=== PATIENT | female | born 1930 | race Caucasian/White ===

== ENCOUNTER 2018-06-19 08:10 | Inpatient (IN) | payer MEDICARE, BC ==
[2018-06-19] MEDS ORDERED: Sodium Chloride 0.9% 10 ML Syringe FLUSH PRN (15:25)
[2018-06-19] MEDS ORDERED: Ondansetron 4 MG Tab.DIS PO PRN (15:25)
[2018-06-19] MEDS ORDERED: Docusate Sodium 100 MG Cap PO PRN (15:25)
[2018-06-19] MEDS ORDERED: fentaNYL 100 MCG/2 ML SDV IVPUSH SCH (15:30)
[2018-06-19] MEDS: Enoxaparin 30 MG/0.3 ML Syringe SUBCUT SCH (16:03)
[2018-06-19] MEDS: Estradiol 1 MG Tab PO SCH (19:40)
[2018-06-19] MEDS: AMITRIPTYLINE 50 MG PO SCH (19:40)
[2018-06-19] MEDS: fentaNYL 100 MCG/2 ML SDV IVPUSH SCH (19:42)
[2018-06-19] MEDS ORDERED: Zolpidem 5 MG Tab PO SCH (20:00)
[2018-06-19] MEDS ORDERED: Amitriptyline 25 MG Tab PO SCH (20:00)
[2018-06-19] MEDS: ZOLPIDEM 6.25 MG PO PRN (20:43)
[2018-06-19] MEDS: Acetaminophen/HYDROcodone 325-5 MG Tab PO PRN (23:17)
[2018-06-20] MEDS: fentaNYL 100 MCG/2 ML SDV IVPUSH SCH ×2 (08:15→19:55)
[2018-06-20] MEDS: Acetaminophen/HYDROcodone 325-5 MG Tab PO PRN ×2 (12:12→21:14)
--- NOTE | 2018-06-20 13:43 | PCM.PN ---
- General Info Date of Service: 06/20/18 Admission Dx/Problem (Free Text): Acute Low Back Pain Functional Status: Reports: Pain Controlled, Tolerating Diet. Denies: Ambulating - Review of Systems General: Reports: Weakness, Fatigue HEENT: Reports: No Symptoms Pulmonary: Reports: No Symptoms Cardiovascular: Reports: No Symptoms Gastrointestinal: Reports: No Symptoms Genitourinary: Reports: No Symptoms Musculoskeletal: Reports: Back Pain, Joint Pain Skin: Reports: No Symptoms Neurological: Reports: Difficulty Walking, Weakness - Patient Data Vitals - Most Recent: Last Vital Signs Temp 98.2 F 06/20/18 12:00 Pulse 78 06/20/18 12:00 Resp 18 06/20/18 12:00 BP 144/62 H 06/20/18 12:00 Pulse Ox 96 06/20/18 12:00 Weight - Most Recent: 101 lb 14.4 oz I&O - Last 24 Hours: Intake & Output 06/19/18 06/20/18 06/20/18 22:59 06:59 14:59 Intake Total 400 Balance 400 Med Orders - Current: Current Medications Hydrocodone Bitart/Acetaminophen ([place] 325-5 Mg) 1 tab PO Q6H PRN PRN Reason: Pain Last Admin: 06/20/18 12:12 Dose: 1 tab Docusate Sodium (Colace) 100 mg PO BID PRN PRN Reason: Constipation Enoxaparin Sodium (Lovenox) 30 mg SUBCUT 1600 [facility] Last Admin: 06/19/18 16:03 Dose: 30 mg Estradiol (Estradiol) 1 mg PO BEDTIME [facility] Last Admin: 06/19/18 19:40 Dose: 1 mg Fentanyl (Sublimaze) 50 mcg IVPUSH Q6H PRN PRN Reason: Pain Fentanyl (Sublimaze) 25 mcg IVPUSH BID@0800,2000 [facility] Last Admin: 06/20/18 08:15 Dose: 25 mcg Ptom Amitriptyline 50 Mg Tab 50 mg PO BEDTIME [facility] Last Admin: 06/19/18 19:40 Dose: 50 mg Zolpidem Er [Ambien Cr] 6.25mg Own Med 6.5 each PO BEDTIME PRN PRN Reason: SLEEP Last Admin: 06/19/18 20:43 Dose: 6.5 each Ondansetron HCl (Zofran Odt) 4 mg PO Q4H PRN PRN Reason: nausea, able to take PO Sodium Chloride (Saline Flush) 10 ml FLUSH ASDIRECTED PRN PRN Reason: Keep Vein Open Discontinued Medications Amitriptyline HCl (Elavil) 50 mg PO BEDTIME [facility] Fentanyl (Sublimaze) 25 mcg IVPUSH Q12H [facility] Last Admin: 06/19/18 16:01 Dose: 25 mcg Zolpidem Tartrate (Ambien) 5 mg PO BEDTIME [facility] - Exam General: Alert, Oriented HEENT: Mucous Membr. Moist/[place] Neck: Supple Lungs: Clear to Auscultation, Normal Respiratory Effort Cardiovascular: Regular Rate, Regular Rhythm GI/Abdominal Exam: Normal Bowel Sounds, Soft, Non-Tender Back Exam: Decreased Range of Motion, Muscle Spasm, Paraspinal Tenderness Extremities: Leg Pain, Limited Range of Motion Skin: Warm, Dry Neurological: No New Focal Deficit - Problem List & Annotations (1) Low back pain SNOMED Code(s): 231290614 Code(s): M54.5 - LOW BACK PAIN Status: Acute Priority: High Current Visit: Yes Qualifiers: Chronicity: acute Back pain laterality: right Sciatica presence: with sciatica - Problem List Review Problem List Initiated/Reviewed/Updated: Yes - Assessment Assessment:: Acute Low Back Pain Right Hip Pain - Plan Plan:: Patient denies much improvement today. Does admit that the pain meds help. Physical Therapy was in yesterday, patient not able to do much due to pain. States they applied heat to the area. Had a trigger point injection to the right upper outer hip region from Gm at clinic yesterday, did not feel helped. She continues to have pain in the right hip and low back and has limited ability to walk as a result. She states finds it difficult to find a position of comfort. Is tender to the right outer hip with palpation. Range of motion limited due to pain. Will continue with IV Fentanyl, physical therapy and see how she progresses. Certainly not able to return home at this point as unable to walk or care for self. Patient expresses refusal to have Dr. Gomez in her room, does not want him involved with her care. He will not be following patient or involved with this hospital stay if possible.
[2018-06-20] MEDS: fentaNYL 100 MCG/2 ML SDV IVPUSH PRN (16:39)
[2018-06-20] MEDS: Enoxaparin 30 MG/0.3 ML Syringe SUBCUT SCH (16:39)
[2018-06-20] MEDS: Estradiol 1 MG Tab PO SCH (20:00)
[2018-06-20] MEDS: AMITRIPTYLINE 50 MG PO SCH (20:00)
[2018-06-20] MEDS: ZOLPIDEM 6.25 MG PO PRN (21:09)
[2018-06-21] MEDS: fentaNYL 100 MCG/2 ML SDV IVPUSH SCH ×2 (07:54→19:56)
--- NOTE | 2018-06-21 10:15 | PCM.PN ---
- General Info Date of Service: 06/21/18 Admission Dx/Problem (Free Text): Acute Low Back Pain Functional Status: Reports: Tolerating Diet. Denies: Pain Controlled, Ambulating - Review of Systems General: Reports: Weakness HEENT: Reports: No Symptoms Pulmonary: Reports: No Symptoms Cardiovascular: Reports: No Symptoms Gastrointestinal: Reports: No Symptoms Genitourinary: Reports: No Symptoms Musculoskeletal: Reports: Back Pain, Leg Pain Skin: Reports: No Symptoms Neurological: Reports: Weakness - Patient Data Vitals - Most Recent: Last Vital Signs Temp 98.9 F 06/21/18 07:41 Pulse 89 06/21/18 07:41 Resp 20 06/21/18 07:41 BP 147/84 H 06/21/18 07:41 Pulse Ox 99 06/21/18 07:41 Weight - Most Recent: 101 lb 14.4 oz Med Orders - Current: Current Medications Hydrocodone Bitart/Acetaminophen ([place] 325-5 Mg) 1 tab PO Q6H PRN PRN Reason: Pain Last Admin: 06/20/18 21:14 Dose: 1 tab Docusate Sodium (Colace) 100 mg PO BID PRN PRN Reason: Constipation Enoxaparin Sodium (Lovenox) 30 mg SUBCUT 1600 [facility] Last Admin: 06/20/18 16:39 Dose: 30 mg Estradiol (Estradiol) 1 mg PO BEDTIME [facility] Last Admin: 06/20/18 20:00 Dose: 1 mg Fentanyl (Sublimaze) 50 mcg IVPUSH Q6H PRN PRN Reason: Pain Last Admin: 06/20/18 16:39 Dose: 50 mcg Fentanyl (Sublimaze) 25 mcg IVPUSH BID@0800,2000 [facility] Last Admin: 06/21/18 07:54 Dose: 25 mcg Ptom Amitriptyline 50 Mg Tab 50 mg PO BEDTIME [facility] Last Admin: 06/20/18 20:00 Dose: 50 mg Zolpidem Er [Ambien Cr] 6.25mg Own Med 6.5 each PO BEDTIME PRN PRN Reason: SLEEP Last Admin: 06/20/18 21:09 Dose: 6.5 each Ondansetron HCl (Zofran Odt) 4 mg PO Q4H PRN PRN Reason: nausea, able to take PO Sodium Chloride (Saline Flush) 10 ml FLUSH ASDIRECTED PRN PRN Reason: Keep Vein Open Discontinued Medications Amitriptyline HCl (Elavil) 50 mg PO BEDTIME [facility] Fentanyl (Sublimaze) 25 mcg IVPUSH Q12H [facility] Last Admin: 06/19/18 16:01 Dose: 25 mcg Zolpidem Tartrate (Ambien) 5 mg PO BEDTIME [facility] - Exam General: Alert, Oriented HEENT: Mucous Membr. Moist/[place] Neck: Supple Lungs: Clear to Auscultation, Normal Respiratory Effort Cardiovascular: Regular Rate, Regular Rhythm GI/Abdominal Exam: Normal Bowel Sounds, Soft, Non-Tender Back Exam: Decreased Range of Motion, Paraspinal Tenderness (continues to have pain in the right SI joint/right outer buttock region) Extremities: Normal Inspection, No Pedal Edema Skin: Warm, Dry Neurological: No New Focal Deficit - Problem List & Annotations (1) Low back pain SNOMED Code(s): 038486995 Code(s): M54.5 - LOW BACK PAIN Status: Acute Priority: High Current Visit: Yes Qualifiers: Chronicity: acute Back pain laterality: right Sciatica presence: with sciatica - Problem List Review Problem List Initiated/Reviewed/Updated: Yes - Assessment Assessment:: Acute Low Back Pain Right Hip Pain - Plan Plan:: Patient denies much improvement today. Does admit that the pain meds help. Physical Therapy was in yesterday, patient not able to do much due to pain. States they applied heat to the area. Had a trigger point injection to the right upper outer hip region from Gm at clinic yesterday, did not feel helped. She continues to have pain in the right hip and low back and has limited ability to walk as a result. She states finds it difficult to find a position of comfort. Is tender to the right outer hip with palpation. Range of motion limited due to pain. Will continue with IV Fentanyl, physical therapy and see how she progresses. Certainly not able to return home at this point as unable to walk or care for self. Patient expresses refusal to have Dr. Gomez in her room, does not want him involved with her care. He will not be following patient or involved with this hospital stay if possible. 06-21-2018 Patient continues to have pain in the right outer buttock/SI region. States continues to have pain with lying on her back and with ambulating. She is covered well with the Fentanyl. PT continues to work with her. States felt mildly better after her treatment yesterday but now this am has right leg pain. Range of motion of back and right leg this am limited due to pain. Is due for her Fentanyl shot at this time. Will transfer to acute inpatient status. Continue with PT and pain meds. May need to proceed with MRI on Sunday if continues to have ongoing pain.
[2018-06-21] MEDS: Acetaminophen/HYDROcodone 325-5 MG Tab PO PRN ×2 (10:21→17:13)
[2018-06-21] MEDS: fentaNYL 100 MCG/2 ML SDV IVPUSH PRN (13:06)
[2018-06-21] MEDS: Enoxaparin 30 MG/0.3 ML Syringe SUBCUT SCH (16:17)
[2018-06-21] MEDS: Amitriptyline 25 MG Tab PO SCH (19:53)
[2018-06-21] MEDS: Estradiol 1 MG Tab PO SCH (19:54)
[2018-06-21] MEDS: ZOLPIDEM 6.25 MG PO PRN (21:46)
[2018-06-22] MEDS: Acetaminophen/HYDROcodone 325-5 MG Tab PO PRN ×3 (01:00→21:32)
[2018-06-22] MEDS: fentaNYL 100 MCG/2 ML SDV IVPUSH SCH (07:39)
[2018-06-22] MEDS ORDERED: Morphine 4 MG/ML Syringe IVPUSH PRN (14:29)
[2018-06-22] MEDS: Enoxaparin 30 MG/0.3 ML Syringe SUBCUT SCH (15:44)
--- NOTE | 2018-06-22 17:13 | PCM.PN ---
- General Info Date of Service: 06/22/18 Admission Dx/Problem (Free Text): Acute Low Back Pain Functional Status: Reports: Pain Controlled Pain Score: 4 - Review of Systems General: Reports: No Symptoms HEENT: Reports: No Symptoms Pulmonary: Reports: No Symptoms Cardiovascular: Reports: No Symptoms Gastrointestinal: Reports: No Symptoms Musculoskeletal: Reports: Joint Pain (low back into the right hip) Skin: Reports: No Symptoms Neurological: Reports: No Symptoms - Patient Data Vitals - Most Recent: Last Vital Signs Temp 97.6 F 06/22/18 07:35 Pulse 78 06/22/18 07:35 Resp 18 06/22/18 07:35 BP 121/60 06/22/18 07:35 Pulse Ox 99 06/22/18 07:35 Weight - Most Recent: 101 lb 14.4 oz Med Orders - Current: Current Medications Hydrocodone Bitart/Acetaminophen ([place] 325-5 Mg) 1 tab PO Q6H PRN PRN Reason: Pain Last Admin: 06/22/18 14:04 Dose: 1 tab Amitriptyline HCl (Elavil) 50 mg PO BEDTIME [facility] Last Admin: 06/21/18 19:53 Dose: 50 mg Docusate Sodium (Colace) 100 mg PO BID PRN PRN Reason: Constipation Enoxaparin Sodium (Lovenox) 30 mg SUBCUT 1600 [facility] Last Admin: 06/22/18 15:44 Dose: 30 mg Estradiol (Estradiol) 1 mg PO BEDTIME [facility] Last Admin: 06/21/18 19:54 Dose: 1 mg Morphine Sulfate (Morphine) 4 mg IVPUSH Q6H PRN PRN Reason: Pain Zolpidem Er [Ambien Cr] 6.25mg Own Med 6.5 each PO BEDTIME PRN PRN Reason: SLEEP Last Admin: 06/21/18 21:46 Dose: 6.5 each Ondansetron HCl (Zofran Odt) 4 mg PO Q4H PRN PRN Reason: nausea, able to take PO Sodium Chloride (Saline Flush) 10 ml FLUSH ASDIRECTED PRN PRN Reason: Keep Vein Open Discontinued Medications Amitriptyline HCl (Elavil) 50 mg PO BEDTIME [facility] Fentanyl (Sublimaze) 25 mcg IVPUSH Q12H [facility] Last Admin: 06/19/18 16:01 Dose: 25 mcg Fentanyl (Sublimaze) 50 mcg IVPUSH Q6H PRN PRN Reason: Pain Last Admin: 06/21/18 13:06 Dose: 50 mcg Fentanyl (Sublimaze) 25 mcg IVPUSH BID@799,1999 [facility] Last Admin: 06/22/18 07:39 Dose: 25 mcg Ptom Amitriptyline 50 Mg Tab 50 mg PO BEDTIME [facility] Last Admin: 06/20/18 20:00 Dose: 50 mg Zolpidem Tartrate (Ambien) 5 mg PO BEDTIME [facility] - Exam General: Alert, Oriented, [place] HEENT: Pupils Equal, Pupils Reactive, EOMI, Mucous Membr. Moist/[place] Neck: Supple, Trachea Midline Lungs: Clear to Auscultation, Normal Respiratory Effort Cardiovascular: Regular Rate, Regular Rhythm GI/Abdominal Exam: Normal Bowel Sounds, Soft, Non-Tender Back Exam: Normal Inspection, Full Range of Motion Extremities: Normal Inspection, No Pedal Edema, Other (right hip tender to palpation in the SI joint. Patient had been up and walking around with nursing staff prior to my exam. She states she is a little sore now. ) - Problem List Review Problem List Initiated/Reviewed/Updated: Yes - My Orders Last 24 Hours: My Active Orders 06/22/18 14:29 Morphine 4 mg IVPUSH Q6H PRN - Assessment Assessment:: Acute Low Back Pain Right Hip Pain - Plan Plan:: Patient denies much improvement today. Does admit that the pain meds help. Physical Therapy was in yesterday, patient not able to do much due to pain. States they applied heat to the area. Had a trigger point injection to the right upper outer hip region from Gm at clinic yesterday, did not feel helped. She continues to have pain in the right hip and low back and has limited ability to walk as a result. She states finds it difficult to find a position of comfort. Is tender to the right outer hip with palpation. Range of motion limited due to pain. Will continue with IV Fentanyl, physical therapy and see how she progresses. Certainly not able to return home at this point as unable to walk or care for self. Patient expresses refusal to have Dr. Gomez in her room, does not want him involved with her care. He will not be following patient or involved with this hospital stay if possible. 06-21-2018 Patient continues to have pain in the right outer buttock/SI region. States continues to have pain with lying on her back and with ambulating. She is covered well with the Fentanyl. PT continues to work with her. States felt mildly better after her treatment yesterday but now this am has right leg pain. Range of motion of back and right leg this am limited due to pain. Is due for her Fentanyl shot at this time. Will transfer to acute inpatient status. Continue with PT and pain meds. May need to proceed with MRI on Sunday if continues to have ongoing pain. 06/22/2018 Patient seems to be getting better - Fentanyl will be reduced to Morphine as she is requesting less breakthrough meds and only used [place] once today - NO PT today do to the weekend. Waiting for MRI on Sunday. Might need career services representative consultation on Sunday as well for rehabilitation placement.
[2018-06-22] MEDS: Amitriptyline 25 MG Tab PO SCH (19:52)
[2018-06-22] MEDS: Estradiol 1 MG Tab PO SCH (19:52)
[2018-06-22] MEDS: ZOLPIDEM 6.25 MG PO PRN (21:33)
[2018-06-23] MEDS: Acetaminophen/HYDROcodone 325-5 MG Tab PO PRN ×3 (08:00→21:58)
--- NOTE | 2018-06-23 14:33 | PCM.PN ---
- General Info Date of Service: 06/23/18 Admission Dx/Problem (Free Text): Acute Low Back Pain Functional Status: Reports: Ambulating - Review of Systems General: Reports: No Symptoms HEENT: Reports: No Symptoms Cardiovascular: Reports: No Symptoms Genitourinary: Reports: No Symptoms Musculoskeletal: Reports: Back Pain, Joint Pain Psychiatric: Reports: Depression - Patient Data Vitals - Most Recent: Last Vital Signs Temp 97.1 F 06/23/18 07:29 Pulse 74 06/23/18 07:29 Resp 14 06/23/18 07:29 BP 127/61 06/23/18 07:29 Pulse Ox 98 06/23/18 07:29 Weight - Most Recent: 101 lb 14.4 oz Med Orders - Current: Current Medications Hydrocodone Bitart/Acetaminophen ([place] 325-5 Mg) 1 tab PO Q6H PRN PRN Reason: Pain Last Admin: 06/23/18 08:00 Dose: 1 tab Amitriptyline HCl (Elavil) 50 mg PO BEDTIME [facility] Last Admin: 06/22/18 19:52 Dose: 50 mg Docusate Sodium (Colace) 100 mg PO BID PRN PRN Reason: Constipation Enoxaparin Sodium (Lovenox) 30 mg SUBCUT 1600 [facility] Last Admin: 06/22/18 15:44 Dose: 30 mg Estradiol (Estradiol) 1 mg PO BEDTIME [facility] Last Admin: 06/22/18 19:52 Dose: 1 mg Morphine Sulfate (Morphine) 4 mg IVPUSH Q6H PRN PRN Reason: Pain Last Admin: 06/22/18 17:37 Dose: 4 mg Zolpidem Er [Ambien Cr] 6.25mg Own Med 6.5 each PO BEDTIME PRN PRN Reason: SLEEP Last Admin: 06/22/18 21:33 Dose: 6.5 each Ondansetron HCl (Zofran Odt) 4 mg PO Q4H PRN PRN Reason: nausea, able to take PO Sodium Chloride (Saline Flush) 10 ml FLUSH ASDIRECTED PRN PRN Reason: Keep Vein Open Discontinued Medications Amitriptyline HCl (Elavil) 50 mg PO BEDTIME [facility] Fentanyl (Sublimaze) 25 mcg IVPUSH Q12H [facility] Last Admin: 06/19/18 16:01 Dose: 25 mcg Fentanyl (Sublimaze) 50 mcg IVPUSH Q6H PRN PRN Reason: Pain Last Admin: 06/21/18 13:06 Dose: 50 mcg Fentanyl (Sublimaze) 25 mcg IVPUSH BID@ [facility] Last Admin: 06/22/18 07:39 Dose: 25 mcg Ptom Amitriptyline 50 Mg Tab 50 mg PO BEDTIME [facility] Last Admin: 06/20/18 20:00 Dose: 50 mg Zolpidem Tartrate (Ambien) 5 mg PO BEDTIME [facility] - Exam General: Alert, Oriented HEENT: Pupils Equal, Pupils Reactive, Mucous Membr. Moist/[place] Neck: Supple Lungs: Clear to Auscultation, Normal Respiratory Effort Cardiovascular: Regular Rate, Regular Rhythm GI/Abdominal Exam: Normal Bowel Sounds, Soft Back Exam: Normal Inspection, Full Range of Motion Extremities: Normal Inspection, Normal Range of Motion, Non-Tender, No Pedal Edema, Normal Capillary Refill Peripheral Pulses: 4+: Carotid (L), Carotid (R), Brachial (L), Brachial (R), Radial (L), Radial (R), Posterior Tibial (L), Posterior Tibial (R), Dorsalis Pedis (L), Dorsalis Pedis (R) Skin: Warm, Dry, Intact Neurological: No New Focal Deficit, Normal Gait Psy/Mental Status: Alert, Normal Affect, Normal Mood - Problem List Review Problem List Initiated/Reviewed/Updated: Yes - My Orders Last 24 Hours: My Active Orders 06/22/18 14:29 Morphine 4 mg IVPUSH Q6H PRN - Assessment Assessment:: Acute Low Back Pain Right Hip Pain - Plan Plan:: Patient denies much improvement today. Does admit that the pain meds help. Physical Therapy was in yesterday, patient not able to do much due to pain. States they applied heat to the area. Had a trigger point injection to the right upper outer hip region from Gm at clinic yesterday, did not feel helped. She continues to have pain in the right hip and low back and has limited ability to walk as a result. She states finds it difficult to find a position of comfort. Is tender to the right outer hip with palpation. Range of motion limited due to pain. Will continue with IV Fentanyl, physical therapy and see how she progresses. Certainly not able to return home at this point as unable to walk or care for self. Patient expresses refusal to have Dr. Gomez in her room, does not want him involved with her care. He will not be following patient or involved with this hospital stay if possible. 06-21-2018 Patient continues to have pain in the right outer buttock/SI region. States continues to have pain with lying on her back and with ambulating. She is covered well with the Fentanyl. PT continues to work with her. States felt mildly better after her treatment yesterday but now this am has right leg pain. Range of motion of back and right leg this am limited due to pain. Is due for her Fentanyl shot at this time. Will transfer to acute inpatient status. Continue with PT and pain meds. May need to proceed with MRI on Sunday if continues to have ongoing pain. 06/22/2018 Patient seems to be getting better - Fentanyl will be reduced to Morphine as she is requesting less breakthrough meds and only used [place] once today - NO PT today do to the weekend. Waiting for MRI on Sunday. Might need social services aide consultation on Sunday as well for rehabilitation placement. 06/23/2018 Patient is sitting up in the room in no acute distress with her daughter at bedside She states she does not want to go home when offered and her daughter also would like her to stay--- I think an assisted living facility would benefit this patient b/c seems lonely and could continue to do PT there. The patient has done well with the step down from Fentnyl to Morphine over the last 24 hours-and only had one norco and one dose of Morphine yesterday during day shift--- during hotel night auditor she had 2130 she was given another norco and then took another norco at 0800-this am. Patient is adamant that she is supposed to stay in the hospital till the MRI on Sunday.... PT will see her again tomorrow.
[2018-06-23] MEDS: Enoxaparin 30 MG/0.3 ML Syringe SUBCUT SCH (16:16)
[2018-06-23] MEDS: Amitriptyline 25 MG Tab PO SCH (19:58)
[2018-06-23] MEDS: Estradiol 1 MG Tab PO SCH (19:59)
[2018-06-23] MEDS: ZOLPIDEM 6.25 MG PO PRN (21:57)
[2018-06-24] MEDS: Acetaminophen/HYDROcodone 325-5 MG Tab PO PRN ×5 (04:23→21:33)
--- NOTE | 2018-06-24 14:55 | PCM.PN ---
- General Info Date of Service: 06/24/18 Admission Dx/Problem (Free Text): Acute Low Back Pain Functional Status: Reports: Tolerating Diet, Ambulating. Denies: Pain Controlled - Review of Systems General: Reports: Weakness, Fatigue, Malaise HEENT: Reports: No Symptoms Pulmonary: Reports: No Symptoms Cardiovascular: Reports: No Symptoms Gastrointestinal: Reports: No Symptoms Musculoskeletal: Reports: Back Pain, Leg Pain, Joint Pain Skin: Reports: No Symptoms Neurological: Reports: No Symptoms - Patient Data Vitals - Most Recent: Last Vital Signs Temp 97.1 F 06/24/18 08:00 Pulse 86 06/24/18 08:00 Resp 18 06/24/18 08:00 BP 149/83 H 06/24/18 08:00 Pulse Ox 100 06/24/18 08:00 Weight - Most Recent: 101 lb 14.4 oz Med Orders - Current: Current Medications Hydrocodone Bitart/Acetaminophen (Gardiner 325-5 Mg) 1 tab PO Q4H PRN PRN Reason: Pain Last Admin: 06/24/18 13:31 Dose: 1 tab Amitriptyline HCl (Elavil) 50 mg PO BEDTIME [facility] Last Admin: 06/23/18 19:58 Dose: 50 mg Docusate Sodium (Colace) 100 mg PO BID PRN PRN Reason: Constipation Enoxaparin Sodium (Lovenox) 30 mg SUBCUT 1600 [facility] Last Admin: 06/23/18 16:16 Dose: 30 mg Estradiol (Estradiol) 1 mg PO BEDTIME [facility] Last Admin: 06/23/18 19:59 Dose: 1 mg Morphine Sulfate (Morphine) 4 mg IVPUSH Q6H PRN PRN Reason: Pain Last Admin: 06/22/18 17:37 Dose: 4 mg Zolpidem Er [Ambien Cr] 6.25mg Own Med 6.5 each PO BEDTIME PRN PRN Reason: SLEEP Last Admin: 06/23/18 21:57 Dose: 6.5 each Ondansetron HCl (Zofran Odt) 4 mg PO Q4H PRN PRN Reason: nausea, able to take PO Sodium Chloride (Saline Flush) 10 ml FLUSH ASDIRECTED PRN PRN Reason: Keep Vein Open Discontinued Medications Hydrocodone Bitart/Acetaminophen (Gardiner 325-5 Mg) 1 tab PO Q6H PRN PRN Reason: Pain Last Admin: 06/24/18 04:23 Dose: 1 tab Amitriptyline HCl (Elavil) 50 mg PO BEDTIME [facility] Fentanyl (Sublimaze) 25 mcg IVPUSH Q12H [facility] Last Admin: 06/19/18 16:01 Dose: 25 mcg Fentanyl (Sublimaze) 50 mcg IVPUSH Q6H PRN PRN Reason: Pain Last Admin: 06/21/18 13:06 Dose: 50 mcg Fentanyl (Sublimaze) 25 mcg IVPUSH BID@08,1999 [facility] Last Admin: 06/22/18 07:39 Dose: 25 mcg Ptom Amitriptyline 50 Mg Tab 50 mg PO BEDTIME [facility] Last Admin: 06/20/18 20:00 Dose: 50 mg Zolpidem Tartrate (Ambien) 5 mg PO BEDTIME [facility] - Exam General: Alert, Oriented HEENT: Mucous Membr. Moist/[place] Neck: Supple Lungs: Clear to Auscultation, Normal Respiratory Effort Cardiovascular: Regular Rate, Regular Rhythm GI/Abdominal Exam: Normal Bowel Sounds, Soft, Non-Tender Back Exam: Decreased Range of Motion, Muscle Spasm, Paraspinal Tenderness Extremities: Normal Inspection, No Pedal Edema Skin: Warm, Dry Neurological: No New Focal Deficit - Problem List & Annotations (1) Low back pain SNOMED Code(s): 716207077 Code(s): M54.5 - LOW BACK PAIN Status: Acute Priority: High Current Visit: Yes Qualifiers: Chronicity: acute Back pain laterality: right Sciatica presence: with sciatica - Problem List Review Problem List Initiated/Reviewed/Updated: Yes - My Orders Last 24 Hours: My Active Orders 06/24/18 09:11 Acetaminophen/HYDROcodone [Gardiner 325-5 MG] 1 tab PO Q4H PRN - Assessment Assessment:: Acute Low Back Pain Right Hip Pain - Plan Plan:: Patient denies much improvement today. Does admit that the pain meds help. Physical Therapy was in yesterday, patient not able to do much due to pain. States they applied heat to the area. Had a trigger point injection to the right upper outer hip region from Gm at clinic yesterday, did not feel helped. She continues to have pain in the right hip and low back and has limited ability to walk as a result. She states finds it difficult to find a position of comfort. Is tender to the right outer hip with palpation. Range of motion limited due to pain. Will continue with IV Fentanyl, physical therapy and see how she progresses. Certainly not able to return home at this point as unable to walk or care for self. Patient expresses refusal to have Dr. Gomez in her room, does not want him involved with her care. He will not be following patient or involved with this hospital stay if possible. 06-21-2018 Patient continues to have pain in the right outer buttock/SI region. States continues to have pain with lying on her back and with ambulating. She is covered well with the Fentanyl. PT continues to work with her. States felt mildly better after her treatment yesterday but now this am has right leg pain. Range of motion of back and right leg this am limited due to pain. Is due for her Fentanyl shot at this time. Will transfer to acute inpatient status. Continue with PT and pain meds. May need to proceed with MRI on Sunday if continues to have ongoing pain. 06/22/2018 Patient seems to be getting better - Fentanyl will be reduced to Morphine as she is requesting less breakthrough meds and only used Gardiner once today - NO PT today do to the weekend. Waiting for MRI on Sunday. Might need office services assistant consultation on Sunday as well for rehabilitation placement. 06/23/2018 Patient is sitting up in the room in no acute distress with her daughter at bedside She states she does not want to go home when offered and her daughter also would like her to stay--- I think an assisted living facility would benefit this patient b/c seems lonely and could continue to do PT there. The patient has done well with the step down from Fentnyl to Morphine over the last 24 hours-and only had one norco and one dose of Morphine yesterday during day shift--- during overnight babysitter she had 2130 she was given another norco and then took another norco at 0800-this am. Patient is adamant that she is supposed to stay in the hospital till the MRI on Sunday.... PT will see her again tomorrow. 06-24-2018 Patient continues to have pain in the low back and right hip. She is ambulating with the walker, states feels better "if bent at the waist and uses the walker for support". Was advised to use Gardiner for pain and try to wean off the IV pain meds as able as does desire to return back home as she feels she is yet able to maintain her independence once this pain is controlled. She states will hire assistance for snow removal and lawn care if needed but does not feel she needs assisted living at this point. Did increase her Gardiner to every 4 hours in order to better control her pain if needed as she does tolerate well. Will obtain MRI of lumbar spine tomorrow and determine further discharge plan after report received.
[2018-06-24] MEDS: Enoxaparin 30 MG/0.3 ML Syringe SUBCUT SCH (16:46)
[2018-06-24] MEDS: Estradiol 1 MG Tab PO SCH (19:49)
[2018-06-24] MEDS: Amitriptyline 25 MG Tab PO SCH (19:49)
[2018-06-24] MEDS: ZOLPIDEM 6.25 MG PO PRN (21:33)
[2018-06-25] MEDS: Acetaminophen/HYDROcodone 325-5 MG Tab PO PRN ×3 (05:43→14:12)
[2018-06-25] MEDS: Enoxaparin 30 MG/0.3 ML Syringe SUBCUT SCH (16:06)
--- NOTE | 2018-06-25 22:04 | PCM.DCSUM1 ---
Discharge Summary - Hospital Course Free Text/Narrative:: Patient presented to see Gm Monge with right hip pain/low back pain. Had been shoveling and developed acute pain. Xrays were taken that did not show acute changes. She was advised to use her Taiban for pain, start Flexeril and was sent to PT. She presented back 3 days later as she was not getting relief of the pain and did not feel she could be home alone as a result. Did not get relief with either the meds or PT. CT scan of lumbar spine did not show acute changes. Was given trigger point injection in right hip, which did not help. She was admitted for pain control and PT. Diagnosis: Stroke: No Modified Morehouse Scale: No Symptoms at All Modified Jacinta Scale Score: 0 - Discharge Data Discharge Date: 06/25/18 Discharge Disposition: Home, W Home Health Agency 06 Condition: Fair - Discharge Diagnosis/Problem(s) (1) Low back pain SNOMED Code(s): 934346636 ICD Code: M54.5 - LOW BACK PAIN Status: Acute Priority: High Qualifiers: Chronicity: acute Back pain laterality: right Sciatica presence: with sciatica - Patient Summary/Data Complications: none Consults: Consultations 06/19/18 15:25 PT Evaluation and Treatment [CONS] Routine Hospital Course: Patient has improved since admission. Was originally admitted observation but after 48 hours was still requiring IV pain meds and not ambulating well as a result of the pain. She was receiving IV Fentanyl which did help with the pain. Was changed to morphine over the weekend and advised to take Taiban first if able in order to transition to oral meds for at home. She was not getting enough pain relief with meds every 6 hours so were changed to every 4 hours as she has improved. Is now ambulating with walker and standby assist. Does continue to have pain in her low back and hip but not as severe. PT feels she is able to manage safely at home. MRI was done which showed mild edema to right lateral L5-S1 but no other acute changes. Will continue with Taiban and add prednisone for 5 days for the inflammation. Will discharge home with Home Health. Nursing will continue to assess pain control, assist with ADLS if needed, monitor medication compliance. Physical therapy to continue for strengthening/ ambulation. Patient is homebound due to narcotic medications and limitations with right leg for driving. Dr. Gomez will oversee home health plan of care. - Patient Instructions Diet: Usual Diet as Tolerated Activity: As Tolerated - Discharge Plan *PRESCRIPTION DRUG MONITORING PROGRAM REVIEWED*: Yes *COPY OF PRESCRIPTION DRUG MONITORING REPORT IN PATIENT GISELLA: Yes Prescriptions/Med Rec: Acetaminophen/HYDROcodone [Taiban 325-5 MG] 1 tab PO Q4H PRN #100 tablet PRN Reason: Pain predniSONE 20 mg PO DAILY #5 tab Home Medications: Home Meds Amitriptyline HCl 50 mg PO BEDTIME 10/19/15 [History] Estradiol 1 mg PO BEDTIME 10/19/15 [History] Zolpidem Tartrate 6.5 mg PO BEDTIME 10/19/15 [History] Denosumab [Prolia] 1 injection SQ Q6M 10/31/17 [History] Acetaminophen/HYDROcodone [Taiban 325-5 MG] 1 tab PO Q4H PRN #100 tablet [Rx] predniSONE 20 mg PO DAILY #5 tab 06/25/18 [Rx] Patient Handouts: Back Pain, Adult Referrals: Annita Iglesias PA [ED Midlevel Provider] - (Follow up with Mickie in one week) - Discharge Summary/Plan Comment DC Time >30 min.: No - General Info Date of Service: 06/25/18 Admission Dx/Problem (Free Text: Acute Low Back Pain Functional Status: Reports: Pain Controlled, Tolerating Diet, Ambulating - Review of Systems General: Reports: Weakness, Fatigue HEENT: Reports: No Symptoms Pulmonary: Denies: Shortness of Breath, Cough Cardiovascular: Denies: Chest Pain, Edema, Lightheadedness Gastrointestinal: Denies: Abdominal Pain, Nausea, Vomiting Genitourinary: Reports: No Symptoms Musculoskeletal: Reports: Back Pain, Leg Pain, Joint Pain Skin: Reports: No Symptoms Neurological: Reports: No Symptoms - Patient Data Vitals - Most Recent: Last Vital Signs Temp 99.1 F 06/25/18 08:00 Pulse 79 06/25/18 08:00 Resp 18 06/25/18 08:00 BP 135/48 L 06/25/18 08:00 Pulse Ox 100 06/25/18 08:00 Weight - Most Recent: 101 lb 14.4 oz Med Orders - Current: Current Medications Discontinued Medications Hydrocodone Bitart/Acetaminophen (Taiban 325-5 Mg) 1 tab PO Q6H PRN PRN Reason: Pain Last Admin: 06/24/18 04:23 Dose: 1 tab Hydrocodone Bitart/Acetaminophen (Taiban 325-5 Mg) 1 tab PO Q4H PRN PRN Reason: Pain Last Admin: 06/25/18 14:12 Dose: 1 tab Amitriptyline HCl (Elavil) 50 mg PO BEDTIME [facility] Amitriptyline HCl (Elavil) 50 mg PO BEDTIME [facility] Last Admin: 06/24/18 19:49 Dose: 50 mg Docusate Sodium (Colace) 100 mg PO BID PRN PRN Reason: Constipation Enoxaparin Sodium (Lovenox) 30 mg SUBCUT 1600 [facility] Last Admin: 06/25/18 16:06 Dose: 30 mg Estradiol (Estradiol) 1 mg PO BEDTIME [facility] Last Admin: 06/24/18 19:49 Dose: 1 mg Fentanyl (Sublimaze) 25 mcg IVPUSH Q12H [facility] Last Admin: 06/19/18 16:01 Dose: 25 mcg Fentanyl (Sublimaze) 50 mcg IVPUSH Q6H PRN PRN Reason: Pain Last Admin: 06/21/18 13:06 Dose: 50 mcg Fentanyl (Sublimaze) 25 mcg IVPUSH BID@0800,2000 [facility] Last Admin: 06/22/18 07:39 Dose: 25 mcg Morphine Sulfate (Morphine) 4 mg IVPUSH Q6H PRN PRN Reason: Pain Last Admin: 06/22/18 17:37 Dose: 4 mg Ptom Amitriptyline 50 Mg Tab 50 mg PO BEDTIME [facility] Last Admin: 06/20/18 20:00 Dose: 50 mg Zolpidem Er [Ambien Cr] 6.25mg Own Med 6.5 each PO BEDTIME PRN PRN Reason: SLEEP Last Admin: 06/24/18 21:33 Dose: 6.5 each Ondansetron HCl (Zofran Odt) 4 mg PO Q4H PRN PRN Reason: nausea, able to take PO Sodium Chloride (Saline Flush) 10 ml FLUSH ASDIRECTED PRN PRN Reason: Keep Vein Open Zolpidem Tartrate (Ambien) 5 mg PO BEDTIME [facility] - Exam General: Reports: Alert, Oriented HEENT: Reports: Mucous Membr. Moist/[place] Neck: Reports: Supple Lungs: Reports: Clear to Auscultation, Normal Respiratory Effort Cardiovascular: Reports: Regular Rate, Regular Rhythm GI/Abdominal Exam: Normal Bowel Sounds, Soft, Non-Tender Back Exam: Reports: Normal Inspection, Paraspinal Tenderness Extremities: Leg Pain, Other (tender to right outer buttock) Skin: Reports: Warm, Dry Neurological: Reports: No New Focal Deficit
== END 2018-06-25 17:55 | disposition home health service (06) | DRG 552 ==
LOC: CC.MS 08:10 → UNDOADMOB 13:52 → CC.MS 15:25 → OBSVTOIN 06-21 08:10
PROVIDERS: ADMIT Physician Assistant Medical; ATTEND Family Medicine
DX: M54.41 Lumbago with sciatica, right side (principal); G43.909 Migraine, unspecified, not intractable, without status migrainosus; Z90.710 Acquired absence of both cervix and uterus; Z79.899 Other long term (current) drug therapy; R53.1 Weakness; M25.551 Pain in right hip; R26.2 Difficulty in walking, not elsewhere classified
CPT/HCPCS: 72131; 72148; 96372; 96374; 96376; 97035-GP; 97140-GP; 97530-GP; 99219; 99225; A9270-GY; G0378; J1650; J2270; J3010

== ENCOUNTER 2019-02-28 12:15 | Inpatient (IN) | payer MEDICARE, BC ==
[2019-02-28] MEDS ORDERED: Ondansetron 4 MG Tab.DIS PO PRN (13:09)
[2019-02-28] MEDS ORDERED: Polyethylene Glycol 3350 Powder 17 GM Packet PO PRN (13:09)
[2019-02-28] MEDS ORDERED: traMADol 50 MG Tab PO PRN (13:18)
[2019-02-28] MEDS ORDERED: Calcium Carbonate 500 MG Tab.Chew PO PRN (13:18)
[2019-02-28] MEDS ORDERED: oxyCODONE 5 MG Tab PO PRN (13:18)
[2019-02-28] MEDS ORDERED: Simethicone 80 MG Tab.Chew PO PRN (13:18)
[2019-02-28] MEDS ORDERED: Denosumab 60 MG/1 ML Syringe SUBCUT ONE (14:40)
[2019-02-28] MEDS: Amitriptyline 25 MG Tab PO SCH (19:57)
[2019-02-28] MEDS: Apixaban 5 MG Tab PO SCH (19:57)
[2019-02-28] MEDS: Zolpidem 5 MG Tab PO SCH (19:57)
[2019-02-28] MEDS: Estradiol 1 MG Tab PO SCH (20:08)
--- NOTE | 2019-02-28 20:13 | PCM.HP.2 ---
H&P History of Present Illness - General Date of Service: 02/28/19 Admit Problem/Dx: Admission Diagnosis/Problem Admission Diagnosis/Problem Hip pain Source of Information: Patient, Old Records History Limitations: Reports: No Limitations - History of Present Illness Initial Comments - Free Text/Narative: Patient admitted swing bed following a total right hip arthroplasty. She admits to minimal pain now. Has been ambulating with walker. Did have difficulty voiding after initial removal of the catheter requiring re- insertion. Was taken out yesterday and is now voiding without concern. Was constipated. Was given a dulcolax suppository this am and had good BM. Is taking minimal pain meds at this point. Duration of Symptoms: Reports: Day(s): Location: Reports: Lower Extremity, Right Quality: Reports: Ache Severity: Mild Improves with: Reports: Rest Worsens with: Reports: Movement Associated Symptoms: Reports: No Other Symptoms - Related Data Allergies/Adverse Reactions: Allergies Allergy/AdvReac Type Severity Reaction Status Date / Time No Known Allergies Allergy Verified 02/28/19 11:46 Home Medications: Home Meds Amitriptyline HCl 50 mg PO BEDTIME 10/19/15 [History] Estradiol 1 mg PO Q48H 10/19/15 [History] Zolpidem Tartrate 10 mg PO BEDTIME 10/19/15 [History] Denosumab [Prolia] 1 injection SQ Q6M 10/31/17 [History] Apixaban [Eliquis] 2.5 mg PO BID 02/28/19 [History] Calcium Carbonate [Tums] 500 mg PO Q6H PRN 02/28/19 [History] Simethicone [Gas-X] 1 tab PO Q6H PRN 02/28/19 [History] oxyCODONE 1 - 2 tab PO Q4H PRN 02/28/19 [History] traMADol [Ultram] 50 mg PO Q6H PRN 02/28/19 [History] Past Medical History HEENT History: Reports: Cataract Musculoskeletal History: Reports: Osteoporosis - Past Surgical History HEENT Surgical History: Reports: Cataract Surgery Female Surgical History: Reports: Hysterectomy Musculoskeletal Surgical History: Reports: Hip Replacement, Other (See Below) Other Musculoskeletal Surgeries/Procedures:: back surgery Social & Family History - Family History Family Medical History: Noncontributory - Tobacco Use Smoking Status *Q: Never Smoker - Caffeine Use Caffeine Use: Reports: None - Recreational Drug Use Recreational Drug Use: No H&P Review of Systems - Review of Systems: Review Of Systems: See Below General: Reports: Malaise, Weakness, Fatigue. Denies: Fever, Chills, Decreased Appetite HEENT: Reports: No Symptoms Pulmonary: Denies: Shortness of Breath, Cough Cardiovascular: Denies: Chest Pain, Edema, Lightheadedness Gastrointestinal: Reports: Constipation. Denies: Abdominal Pain, Nausea, Vomiting Genitourinary: Reports: No Symptoms Musculoskeletal: Reports: Joint Pain Skin: Reports: Other (incision right hip) Psychiatric: Reports: No Symptoms Exam - Exam Exam: See Below - Vital Signs Vital Signs: Last Vital Signs Temp 102 F H 02/28/19 20:00 Pulse 97 02/28/19 20:00 Resp 20 02/28/19 20:00 BP 112/52 L 02/28/19 20:00 Pulse Ox 99 02/28/19 20:00 Weight: 105 lb - Exam General: Alert, Oriented HEENT: Conjunctiva Clear, Mucosa Moist & [place], Posterior Pharynx Clear Neck: Supple Lungs: Clear to Auscultation, Normal Respiratory Effort Cardiovascular: Regular Rate, Regular Rhythm GI/Abdominal Exam: Normal Bowel Sounds, Soft, Non-Tender Extremities: Leg Pain Skin: Warm, Dry, Incision (bandage clean and dry to right hip) Neuro Extensive - Mental Status: Alert, Oriented x3 - Problem List (1) H/O total hip arthroplasty SNOMED Code(s): 483794136467, [id number] ICD Code: Z96.649 - PRESENCE OF UNSPECIFIED ARTIFICIAL HIP JOINT Status: Acute Priority: High Current Visit: Yes Qualifiers: Laterality: right Qualified Code(s): Z96.641 - Presence of right artificial hip joint Problem List Initiated/Reviewed/Updated: Yes Orders Last 24hrs: Active Orders 24 hr Category Date Time Status Patient Status [ADT] Routine ADT 02/28/19 13:09 Active Antiembolic Devices [RC] 1000,2200 Care 02/28/19 13:36 Active Communication Order [RC] ONETIME Care 02/28/19 13:09 Active Dressing Change [Wound Care] [RC] Q3D Care 03/03/19 08:00 Active May Shower [RC] ASDIRECTED Care 02/28/19 13:09 Active Oxygen Therapy [RC] .PRN Care 02/28/19 13:09 Active Up ad Samina [RC] ASDIRECTED Care 02/28/19 13:09 Active Vital Signs [RC] 799,1999 Care 02/28/19 13:09 Active Wound Care [RC] Care 02/28/19 13:09 Active PT Evaluation and Treatment [CONS] Routine Cons 02/28/19 13:09 Active Regular Diet [DIET] Diet 02/28/19 Dinner Active BASIC METABOLIC PANEL,BMP [CHEM] Stat Lab 02/28/19 20:07 Ordered C-REACTIVE PROTEIN [CHEM] Stat Lab 02/28/19 20:07 Ordered CBC WITH AUTO DIFF [HEME] Stat Lab 02/28/19 20:07 Ordered CULTURE BLOOD [BC] Stat Lab 02/28/19 20:07 Ordered CULTURE BLOOD [BC] Stat Lab 02/28/19 20:07 Ordered LACTIC ACID [CHEM] Routine Lab 02/28/19 20:07 Ordered Amitriptyline [Elavil] Med 02/28/19 20:00 Active 50 mg PO BEDTIME Apixaban [Eliquis] Med 02/28/19 20:00 Active 2.5 mg PO BID Calcium Carbonate [Tums] Med 02/28/19 13:18 Active 500 mg PO Q6H PRN Estradiol Med 02/28/19 20:00 Active 1 mg PO Q48H Ondansetron [Zofran ODT] Med 02/28/19 13:09 Active 4 mg PO Q4H PRN Polyethylene Glycol 3350 [MiraLAX] Med 03/01/19 08:00 Active 17 gm PO DAILY Simethicone Med 02/28/19 13:18 Active 80 mg PO Q6H PRN Zolpidem [Ambien] Med 02/28/19 20:00 Active 10 mg PO BEDTIME oxyCODONE Med 02/28/19 13:18 Active 5 - 10 mg PO Q4H PRN traMADol [Ultram] Med 02/28/19 13:18 Active 50 mg PO Q6H PRN Blood Culture x2 Reflex Set [OM.PC] Stat Oth 02/28/19 20:07 Ordered PIERRE Hose [Antiembolic Hose] [OM.PC] Routine Oth 02/28/19 13:36 Ordered Resuscitation Status Routine Resus Stat 02/28/19 13:09 Ordered Medication Orders Amitriptyline HCl (Elavil) 50 mg PO BEDTIME [facility] Last Admin: 02/28/19 19:57 Dose: 50 mg Apixaban (Eliquis) 2.5 mg PO BID [facility] Last Admin: 02/28/19 19:57 Dose: 2.5 mg Calcium Carbonate/Glycine (Tums) 500 mg PO Q6H PRN PRN Reason: Heartburn Estradiol (Estradiol) 1 mg PO Q48H [facility] Ondansetron HCl (Zofran Odt) 4 mg PO Q4H PRN PRN Reason: nausea, able to take PO Oxycodone HCl (Oxycodone) 5 - 10 mg PO Q4H PRN PRN Reason: Pain Polyethylene Glycol (Miralax) 17 gm PO DAILY [facility] Simethicone (Simethicone) 80 mg PO Q6H PRN PRN Reason: Gas Tramadol HCl (Ultram) 50 mg PO Q6H PRN PRN Reason: Pain Zolpidem Tartrate (Ambien) 10 mg PO BEDTIME [facility] Last Admin: 02/28/19 19:57 Dose: 10 mg Assessment/Plan Comment:: S/P Right Hip arthroplasty Weakness Palliative Care patient Admitted swing bed for physical therapy for strengthening. - Mortality Measure Prognosis:: Good
[2019-02-28 20:46] LABS: CHLORIDE,CL 106 mEq/L (98-106); SODIUM,NA 140 mEq/L (136-145)
[2019-02-28] MEDS: Acetaminophen 325 MG Tab PO PRN (20:56)
[2019-03-01] MEDS: Apixaban 5 MG Tab PO SCH ×2 (07:35→19:59)
[2019-03-01] MEDS: Polyethylene Glycol 3350 Powder 17 GM Packet PO SCH (07:35)
[2019-03-01] MEDS: Acetaminophen 325 MG Tab PO PRN ×2 (07:36→20:00)
[2019-03-01] MEDS: Amoxicillin/Clavulanate K 875-125 MG Tab PO SCH (19:59)
[2019-03-01] MEDS: Amitriptyline 25 MG Tab PO SCH (19:59)
[2019-03-01] MEDS: Zolpidem 5 MG Tab PO SCH (22:11)
[2019-03-02] MEDS: Acetaminophen 325 MG Tab PO PRN ×4 (02:06→20:10)
[2019-03-02] MEDS: Apixaban 5 MG Tab PO SCH ×2 (07:39→20:11)
[2019-03-02] MEDS: Polyethylene Glycol 3350 Powder 17 GM Packet PO SCH (07:40)
[2019-03-02] MEDS: Amoxicillin/Clavulanate K 875-125 MG Tab PO SCH ×2 (07:41→17:30)
[2019-03-02 07:54] LABS: CHLORIDE,CL 106 mEq/L (98-106); SODIUM,NA 141 mEq/L (136-145)
[2019-03-02] MEDS ORDERED: Polyethylene Glycol 3350 Powder 17 GM Packet PO PRN (15:50)
[2019-03-02] MEDS: Amitriptyline 25 MG Tab PO SCH (20:11)
[2019-03-02] MEDS: Zolpidem 5 MG Tab PO SCH (20:12)
[2019-03-02] MEDS: Estradiol 1 MG Tab PO SCH (20:16)
[2019-03-03] MEDS: Amoxicillin/Clavulanate K 875-125 MG Tab PO SCH ×2 (07:48→17:20)
[2019-03-03] MEDS: Apixaban 5 MG Tab PO SCH ×2 (07:48→20:20)
[2019-03-03] MEDS: Acetaminophen 325 MG Tab PO PRN ×3 (08:19→20:19)
[2019-03-03] MEDS: Zolpidem 5 MG Tab PO SCH (20:19)
[2019-03-03] MEDS: Amitriptyline 25 MG Tab PO SCH (20:20)
[2019-03-04] MEDS: Acetaminophen 325 MG Tab PO PRN ×2 (04:41→11:51)
[2019-03-04] MEDS: Amoxicillin/Clavulanate K 875-125 MG Tab PO SCH ×2 (07:29→17:17)
[2019-03-04] MEDS: Apixaban 5 MG Tab PO SCH ×2 (07:29→21:04)
[2019-03-04] MEDS: Zolpidem 5 MG Tab PO SCH (21:03)
[2019-03-04] MEDS: Amitriptyline 25 MG Tab PO SCH (21:04)
[2019-03-04] MEDS: Estradiol 1 MG Tab PO SCH (21:08)
[2019-03-05] MEDS: Amoxicillin/Clavulanate K 875-125 MG Tab PO SCH ×2 (07:21→17:41)
[2019-03-05] MEDS: Apixaban 5 MG Tab PO SCH ×2 (07:21→19:23)
[2019-03-05] MEDS: Acetaminophen 325 MG Tab PO PRN ×3 (09:45→20:43)
[2019-03-05] MEDS: Zolpidem 5 MG Tab PO SCH (19:22)
[2019-03-05] MEDS: Amitriptyline 25 MG Tab PO SCH (19:23)
[2019-03-06] MEDS: Apixaban 5 MG Tab PO SCH ×2 (07:40→19:40)
[2019-03-06] MEDS: Amoxicillin/Clavulanate K 875-125 MG Tab PO SCH ×2 (07:40→17:33)
[2019-03-06] MEDS: Acetaminophen 325 MG Tab PO PRN (08:46)
[2019-03-06] MEDS: Amitriptyline 25 MG Tab PO SCH (19:40)
[2019-03-06] MEDS: Zolpidem 5 MG Tab PO SCH (19:40)
[2019-03-06] MEDS: Estradiol 1 MG Tab PO SCH (19:56)
[2019-03-07] MEDS: Apixaban 5 MG Tab PO SCH (07:33)
[2019-03-07] MEDS: Amoxicillin/Clavulanate K 875-125 MG Tab PO SCH ×2 (07:33→16:53)
[2019-03-07] MEDS: Acetaminophen 325 MG Tab PO PRN (07:40)
--- NOTE | 2019-03-07 14:52 | PCM.DCSUM1 ---
Discharge Summary - Hospital Course Free Text/Narrative:: Patient admitted to swing bed following right total hip replacement. Surgery was uneventful. Patient did have issues with constipation and urinary retention following surgery. She was given suppository on discharge and did have good bowel movement prior to discharge. Had to have catheter reinserted but she is now voiding well. Patient is ambulating with walker, does feel weak yet. Tolerating pain well with use of Tylenol. Requiring few pain pills per notes. Diagnosis: Stroke: No Modified Sondheimer Scale: No Symptoms at All Modified Sondheimer Scale Score: 0 - Discharge Data Discharge Date: 03/07/19 Discharge Disposition: Home, Self-Care 01 Condition: Good - Referral to Home Health Primary Care Physician: Mando Gomez MD - Discharge Diagnosis/Problem(s) (1) H/O total hip arthroplasty SNOMED Code(s): 227623267417, [id number] ICD Code: Z96.649 - PRESENCE OF UNSPECIFIED ARTIFICIAL HIP JOINT Status: Acute Priority: High Qualifiers: Laterality: right Qualified Code(s): Z96.641 - Presence of right artificial hip joint - Patient Summary/Data Complications: none Consults: Consultations 02/28/19 13:09 PT Evaluation and Treatment [CONS] Routine Hospital Course: Patient has done well. She is ambulating well with walker, able to get in and out of bed per self. She did spike a fever on day 2 after admit, labs were drawn. WBC was normal, CRP elevated. Mild redness noted to right hip, no drainage. UA negative. As she continued to have persistent fever for over 24 hours, she was started on Augmentin. Repeat labs have been stable. Blood cultures negative. Did develop loose stools with Augmentin. Having minimal pain now, only taking Tylenol. Will discharge home. Son will be here for the next week to help with patient. Refused home health services. - Patient Instructions Diet: Usual Diet as Tolerated Activity: As Tolerated - Discharge Plan *PRESCRIPTION DRUG MONITORING PROGRAM REVIEWED*: No *COPY OF PRESCRIPTION DRUG MONITORING REPORT IN PATIENT GISELLA: No Home Medications: Home Meds Amitriptyline HCl 50 mg PO BEDTIME 10/19/15 [History] Estradiol 1 mg PO Q48H 10/19/15 [History] Zolpidem Tartrate 10 mg PO BEDTIME 10/19/15 [History] Denosumab [Prolia] 1 injection SQ Q6M 10/31/17 [History] Apixaban [Eliquis] 2.5 mg PO BID 02/28/19 [History] Calcium Carbonate [Tums] 500 mg PO Q6H PRN 02/28/19 [History] Simethicone [Gas-X] 1 tab PO Q6H PRN 02/28/19 [History] oxyCODONE 1 - 2 tab PO Q4H PRN 02/28/19 [History] traMADol [Ultram] 50 mg PO Q6H PRN 02/28/19 [History] - Discharge Summary/Plan Comment DC Time >30 min.: No - General Info Date of Service: 03/07/19 Admission Dx/Problem (Free Text: Admission Diagnosis/Problem Admission Diagnosis/Problem Hip pain Functional Status: Reports: Pain Controlled, Tolerating Diet, Ambulating, Urinating - Review of Systems General: Reports: Weakness, Fatigue. Denies: Fever, Malaise HEENT: Reports: No Symptoms Pulmonary: Denies: Shortness of Breath, Cough Cardiovascular: Reports: No Symptoms Gastrointestinal: Reports: Diarrhea. Denies: Abdominal Pain, Nausea, Vomiting Genitourinary: Reports: No Symptoms Musculoskeletal: Reports: Leg Pain, Joint Pain Skin: Reports: Other (incision) Neurological: Reports: No Symptoms - Patient Data Vitals - Most Recent: Last Vital Signs Temp 99.9 F 03/07/19 08:48 Pulse 82 03/07/19 08:00 Resp 18 03/07/19 08:00 BP 129/60 03/07/19 08:00 Pulse Ox 98 03/07/19 08:00 Weight - Most Recent: 95 lb 6.4 oz Med Orders - Current: Current Medications Acetaminophen (Tylenol) 650 mg PO Q4H PRN PRN Reason: Fever Last Admin: 03/07/19 07:40 Dose: 650 mg Amitriptyline HCl (Elavil) 50 mg PO BEDTIME [facility] Last Admin: 03/06/19 19:40 Dose: 50 mg Amoxicillin/Clavulanate Potassium (Augmentin 875 Mg/125 Mg) 1 tab PO BIDMEALS [facility] Last Admin: 03/07/19 07:33 Dose: 1 tab Apixaban (Eliquis) 2.5 mg PO BID [facility] Last Admin: 03/07/19 07:33 Dose: 2.5 mg Calcium Carbonate/Glycine (Tums) 500 mg PO Q6H PRN PRN Reason: Heartburn Last Admin: 03/05/19 14:38 Dose: 500 mg Estradiol (Estradiol) 1 mg PO Q48H [facility] Last Admin: 03/06/19 19:56 Dose: 1 mg Ondansetron HCl (Zofran Odt) 4 mg PO Q4H PRN PRN Reason: nausea, able to take PO Last Admin: 03/03/19 09:07 Dose: 4 mg Oxycodone HCl (Oxycodone) 5 - 10 mg PO Q4H PRN PRN Reason: Pain Polyethylene Glycol (Miralax) 17 gm PO DAILY PRN PRN Reason: Constipation Simethicone (Simethicone) 80 mg PO Q6H PRN PRN Reason: Gas Tramadol HCl (Ultram) 50 mg PO Q6H PRN PRN Reason: Pain Zolpidem Tartrate (Ambien) 10 mg PO BEDTIME [facility] Last Admin: 03/06/19 19:40 Dose: 10 mg Discontinued Medications Denosumab (Prolia) 60 mg SUBCUT ONETIME ONE Stop: 02/28/19 14:41 Last Admin: 02/28/19 15:34 Dose: Not Given Polyethylene Glycol (Miralax) 17 gm PO DAILY PRN PRN Reason: Constipation Polyethylene Glycol (Miralax) 17 gm PO DAILY [facility] Last Admin: 03/02/19 07:40 Dose: 17 gm - Exam General: Reports: Alert, Oriented HEENT: Reports: Mucous Membr. Moist/[place] Neck: Reports: Supple Lungs: Reports: Clear to Auscultation, Normal Respiratory Effort Cardiovascular: Reports: Regular Rate, Regular Rhythm GI/Abdominal Exam: Normal Bowel Sounds, Soft, Non-Tender Extremities: No Pedal Edema Skin: Reports: Warm, Dry Wound/Incisions: Reports: Healing Well, Dressing Dry and Intact Neurological: Reports: No New Focal Deficit
== END 2019-03-07 17:43 | disposition home or self-care (01) | DRG 561 ==
LOC: CC.MS 12:15 → UNDOADMIN 12:15 → CC.MS 13:09
PROVIDERS: ADMIT Family Medicine; ATTEND Family Medicine
DX: Z47.1 Aftercare following joint replacement surgery (principal); Z96.641 Presence of right artificial hip joint; R33.9 Retention of urine, unspecified; K59.00 Constipation, unspecified; R53.1 Weakness; Z51.5 Encounter for palliative care; M81.0 Age-related osteoporosis without current pathological fracture; Z90.49 Acquired absence of other specified parts of digestive tract; Z90.710 Acquired absence of both cervix and uterus; Z79.899 Other long term (current) drug therapy
CPT/HCPCS: 36415; 80048; 81001; 83605; 85025; 86140; 87040; 87086; 97110-GP; 97161-GP; 97535-GP; A9270-GY